=== PATIENT | male | born 1945 | race Caucasian/White ===

== ENCOUNTER 2017-07-19 14:37 | Observation (INO) ==
[2017-07-19] MEDS ORDERED: Aspirin Enteric Coated 81 MG Tablet PO ONE (14:52)
--- NOTE | 2017-07-19 14:55 | Emergency Department Note ---
Disposition Clinical Impression: Chest pain Qualifiers: Chest pain type: unspecified Qualified Code(s): R07.9 - Chest pain, unspecified Disposition: Admitted As Inpatient Condition: Good Time of Disposition: 15:51 General Adult HPI - General Chief complaint: ED Chest Pain Stated complaint: LEAH / CP Time Seen by Provider: 07/19/17 14:41 Source: patient, family Limitations: no limitations Nursing Notes Reviewed: Yes Vital Signs Reviewed: Yes - History of Present Illness HPI Narrative: Patient is a 72-year-old male that presents the emergency department with chest pain and shortness of breath. Said this ongoing for the past 3 days has progressively been getting worse. He describes the pain as a heaviness that radiates into his neck. States that this is similar to previous cardiac events. States that he has also had some nausea and diaphoresis. He states that he has had 3 previous heart procedures including 2 stents in the LAD most recent as 4-5 years ago. Pain Scale: 0 - Related Data Home Medications Medication Instructions Recorded Confirmed Albuterol Sulfate [Proair 2 puff IH Q4H PRN 05/07/15 07/19/17 Respiclick] Aspirin Enteric Coated [Aspirin EC] 81 mg PO QAM 05/07/15 07/19/17 Atorvastatin Calcium [Lipitor] 80 mg PO QPM 05/07/15 07/19/17 Carvedilol 12.5 mg PO BID 05/07/15 07/19/17 Cholecalciferol (Vitamin D3) 1,000 unit PO QAM 05/07/15 07/19/17 [Vitamin D] Clopidogrel [Plavix] 75 mg PO QAM 05/07/15 07/19/17 Furosemide [Lasix] 20 mg PO QPM 05/07/15 07/19/17 Furosemide [Lasix] 40 mg PO QAM 05/07/15 07/19/17 HYDROcodone/Acet 5/325 mg [[place] 1 tab PO Q6H PRN 05/07/15 07/19/17 5-325 mg] Lisinopril [Zestril] 5 mg PO QAM 05/07/15 07/19/17 Nitroglycerin 0.3 mg SL AD PRN 05/07/15 07/19/17 Potassium Chloride [Klor-Con 10 meq PO QPM 05/07/15 07/19/17 Sprinkle] Allergies Allergy/AdvReac Type Severity Reaction Status Date / Time isosorbide [From Imdur] AdvReac Dizziness Verified 05/07/15 09:55 All systems ED: reviewed and negative except as stated. Constitutional: Reports: other (Diaphoresis) Cardiovascular: Reports: chest pain Respiratory: Reports: dyspnea Gastrointestinal: Reports: nausea Past Medical History - Past Medical History Medical history: Reports: aortic aneurysm, COPD, myocardial infarction, other Surgical history: Reports: orthopedic, other (NECK FUSION) Psychiatric history: Reports: no psych history - Social History Smoking Status: Former smoker Smokeless Tobacco Status: No Alcohol use: Reports: none Drug use: Reports: none Physical Exam - General Limitations: no limitations General appearance: alert, in no apparent distress - Head Head exam: atraumatic, normocephalic - Eye Eye exam: Present: normal appearance, EOMI - Neck Neck exam: Present: normal inspection, full ROM, trachea midline - Respiratory Respiratory exam: Present: normal lung sounds bilaterally. Absent: respiratory distress, wheezes - Cardiovascular Cardiovascular exam: Present: regular rate, normal rhythm, normal heart sounds, +S1, +S2 - Abdominal Exam Abdominal exam: Present: soft, Non-Tender, normal bowel sounds - Neurological Exam Neurological exam: Present: alert, oriented X3 - Psychiatric Psychiatric exam: Present: normal affect, normal mood - Skin Skin exam: Present: warm, dry, intact Course Vital Signs Temperature 97.8 F 07/19/17 14:43 Pulse Rate 70 07/19/17 14:43 Respiratory Rate 18 07/19/17 14:43 Blood Pressure 147/104 07/19/17 14:43 O2 Sat by Pulse Oximetry 96 07/19/17 14:43 Temperature 97.9 F 07/19/17 17:07 Pulse Rate 61 07/19/17 17:07 Respiratory Rate 16 07/19/17 17:07 Blood Pressure 115/69 07/19/17 17:07 O2 Sat by Pulse Oximetry 97 07/19/17 17:07 Oxygen Delivery Oxygen Delivery Room Air Medical Decision Making - MDM Narrative Medical decision making narrative: Due to the patient having chest pain and shortness of breath with a previous cardiac history we will obtain a CBC, BMP, BNP, troponin, chest x-ray and EKG. There is concern for possible cardiac related events. The patient's troponin was negative, BNP was negative, chest x-ray showed no acute cardiopulmonary process. The EKG showed no acute changes from previous. There is no STEMI noted on EKG. However due to the patient having previous cardiac history and concern for possible angina-related pain today revealed the patient to be admitted to the hospital for further evaluation and management. The patient took 2 nitroglycerin here in the emergency department and states that this helped relieve his pain. Patient denied taking a third nitroglycerin at this time. Patient was also given 243 mg of aspirin due to the patient ready taking one 81 mg aspirin at home. Patient is also currently on Plavix. Patient will need to be admitted to the hospital for further evaluation and management. I called and spoke the hospital's medical except the patient to their service. The patient will be admitted to the hospital at this time. - Lab Data Lab results reviewed: Yes I reviewed the patient's lab results. Result diagrams: 07/19/17 15:08 07/19/17 15:08 Lab Results 07/19/17 07/19/17 07/19/17 Range/Units 15:08 15:08 15:08 WBC 7.3 (4.3-11.1) K/mcL RBC 4.77 (4.19-5.50) M/mcL Hgb 15.2 (12.9-16.9) g/dL Hct 43.4 (37.5-50.1) % MCV 91.0 (83.0-100.0) fL MCH 31.9 (28.0-33.3) pg MCHC 35.0 (31.6-35.5) g/dL RDW 12.0 (11.5-14.5) % Plt Count 236 (140-400) K/mcL MPV 9.4 (9.4-12.4) fL Immature Gran % 0.3 (0-4) % Seg Neutrophils % 70.7 % Lymphocytes % 14.4 % Monocytes % 12.4 % Eosinophils % 1.5 % Basophils % 0.7 % Neutrophils # 5.2 (1.6-8.9) K/mcL Lymphocytes # 1.1 (0.6-4.6) K/mcL Monocytes # 0.9 (0.0-1.3) K/mcL Eosinophils # 0.1 (0.0-0.6) K/mcL Basophils # 0.1 (0.0-0.2) K/mcL Immature Plt Fraction 3.6 (1.1-6.1) % PT 11.8 (9.4-12.1) Seconds INR 1.1 APTT 33.7 (26.0-36.0) Seconds Sodium (136-145) mEq/L Potassium (3.5-5.1) mEq/L Chloride (98-107) mEq/L Carbon Dioxide (23-29) mEq/L BUN (8-23) mg/dL Creatinine (0.70-1.30) mg/dL Est GFR ( Amer) (> 60) Est GFR (Non-Af Amer) (> 60) BUN/Creatinine Ratio (6-26) Glucose (70-105) mg/dL Calculated Osmolality (280-300) Calcium (8.6-10.3) mg/dL Troponin I (< 0.04) ng/mL B-Natriuretic Peptide 12 (Less than 100) pg/mL 07/19/17 07/19/17 Range/Units 15:08 15:08 WBC (4.3-11.1) K/mcL RBC (4.19-5.50) M/mcL Hgb (12.9-16.9) g/dL Hct (37.5-50.1) % MCV (83.0-100.0) fL MCH (28.0-33.3) pg MCHC (31.6-35.5) g/dL RDW (11.5-14.5) % Plt Count (140-400) K/mcL MPV (9.4-12.4) fL Immature Gran % (0-4) % Seg Neutrophils % % Lymphocytes % % Monocytes % % Eosinophils % % Basophils % % Neutrophils # (1.6-8.9) K/mcL Lymphocytes # (0.6-4.6) K/mcL Monocytes # (0.0-1.3) K/mcL Eosinophils # (0.0-0.6) K/mcL Basophils # (0.0-0.2) K/mcL Immature Plt Fraction (1.1-6.1) % PT (9.4-12.1) Seconds INR APTT (26.0-36.0) Seconds Sodium 131 L (136-145) mEq/L Potassium 3.9 (3.5-5.1) mEq/L Chloride 97 L (98-107) mEq/L Carbon Dioxide 26 (23-29) mEq/L BUN 8 (8-23) mg/dL Creatinine 0.78 (0.70-1.30) mg/dL Est GFR ( Amer) > 60 (> 60) Est GFR (Non-Af Amer) > 60 (> 60) BUN/Creatinine Ratio 10 (6-26) Glucose 111 H (70-105) mg/dL Calculated Osmolality 271 L (280-300) Calcium 9.6 (8.6-10.3) mg/dL Troponin I < 0.03 (< 0.04) ng/mL B-Natriuretic Peptide (Less than 100) pg/mL - Radiology Data Radiology results reviewed: Yes I reviewed the patient's radiology results. Chest X-Ray 07/19/17 14:49 IMPRESSION: No acute cardiopulmonary disease. D/ / 07/19/2017 15:20:48 [facility] Inter[facility] Provider: Yash Ayers MD - EKG Data EKG #1 EKG attestation: Yes I reviewed and interpreted this EKG. EKG results narrative: EKG shows a this rhythm and rate of 68 bpm, MA interval 171, QRS duration of 98 , QTC of 397. No STEMI is noted on EKG. This was compared to previous EKG on 05/07/15 which showed a sinus rhythm at a rate of 74 bpm. There are no acute changes noted between these EKGs. Attestation Statement - Attestation Attestation: I, Nicolás Vera DO, examined this patient [id number] and my medical decision-making was reviewed with Dr. Klever Palm, Resident Physician. I agree with the documented findings, disposition and treatment plan as described except to the extent set forth below. Please see my progress notes for details. 72-year-old male presents emergency room a chest discomfort and pain similar to when he had a myocardial infarction 4 years ago. Patient did not take any medications at home. Patient does have nitroglycerin at his house and does not feel like he wanted to take it prior to coming in. Take a baby aspirin was warranted currently on Plavix. Patient denies any specific exertional component to the symptoms at this time. Initial EKG shows stable morphology comparison EKG from just under a year ago. Patient is provided 2 doses of nitroglycerin glycerin here in the emergency room the symptoms completely resolved. Patient will be monitored here in the in the emergency room his admission processes completely established. Patient does not have any other complaints or issues prior to coming in. His lungs are clear heart is regular his abdomen is soft nontender nondistended no pulsatile lesions or issues. Patient was also extremities. Has good pulses. No other rashes or lesions noted at this time. Patient will require admission for definitive management. Cardiology was not contacted at this time considering his pain ACS evaluation. Patient will most likely need a catheterization during this treatment course considering he has had multiple stenting in the past. Patient is provided with full dose aspirin here in the emergency room. Because of the patient having pain and symptoms for almost 3 days now will not start heparin at this point. Further evaluation recommendations will be completed by the hospitalist as well as the identity access management architect. Disposition of admission at this time. See detailed documentation of the physical exam, medical intervention, medical decision- making and disposition in the resident physician's note. No critical care was applied during this treatment course. 1625 Patient is completely symptom free at this time after 2 nitroglycerin. Patient will be admitted for anginal equivalent and concerning history. EKG and labs are unremarkable. No heparin was started at this time. Hospitalist was contacted for admission process.
[2017-07-19] MEDS: Nitroglycerin 0.4 MG TAB.SUBL SL ONE ×2 (15:01→15:09)
[2017-07-19 15:16] LABS: Basophils # 0.1 K/mcL (0.0-0.2); Basophils % 0.7 %; Eosinophils # 0.1 K/mcL (0.0-0.6); Eosinophils % 1.5 %; Hematocrit 43.4 % (37.5-50.1); Hemoglobin 15.2 g/dL (12.9-16.9); Immature Granulocytes % 0.3 % (0-4); Immature Platelets 3.6 % (1.1-6.1); Lymphocytes # 1.1 K/mcL (0.6-4.6); Lymphocytes % 14.4 %; Mean Corpuscular Hemoglobin 31.9 pg (28.0-33.3); Mean Platelet Volume 9.4 fL (9.4-12.4); Monocytes # 0.9 K/mcL (0.0-1.3); Monocytes % 12.4 %; Neutrophils # 5.2 K/mcL (1.6-8.9); Platelet Count 236 K/mcL (140-400); Red Blood Count 4.77 M/mcL (4.19-5.50); Segmented Neutrophils % 70.7 %
[2017-07-19 15:20] LABS: INR 1.1; Prothrombin Time 11.8 Seconds (9.4-12.1)
[2017-07-19 15:22] LABS: Activated Partial Thrombo Time 33.7 Seconds (26.0-36.0)
[2017-07-19 15:37] LABS: BUN/Creatinine Ratio 10 (6-26); Blood Urea Nitrogen 8 mg/dL (8-23); Calcium 9.6 mg/dL (8.6-10.3); Carbon Dioxide 26 mEq/L (23-29); Chloride 97 mEq/L (98-107); Glucose 111 mg/dL (70-105); Osmolality,Calculated 271 (280-300); Potassium 3.9 mEq/L (3.5-5.1); Sodium 131 mEq/L (136-145); eGFR For African Americans > 60 (> 60); eGFR For Non-African Americans > 60 (> 60)
[2017-07-19] MEDS ORDERED: Naloxone 0.4 MG/ML INJ IVP PRN (16:10)
[2017-07-19] MEDS ORDERED: *HR* HYDROcodone/Acet 5/325 mg TABLET PO PRN (16:25)
[2017-07-19] MEDS ORDERED: Nitroglycerin 0.4 MG TAB.SUBL SL PRN (16:25)
--- NOTE | 2017-07-19 16:32 | Internal Med History&Physical ---
<Tommy Johns - Last Filed: 07/19/17 16:50> Date of Encounter: 07/19/17 Time of Encounter: 16:27 Assessment and Plan (1) Chest pain Current visit: Yes Status: Acute ASSESSMENT: - Midsternal, dull exertional Chest pain with radiation to the neck and between his scapula. He has a h/o CAD and prior LA with 2 stents in the LAD. His last TTE was in 2014. At that time EF was 60%. His last cath was on 08/28/14 which is when he received the stent. There was also an 80% stenosis in the RCA at that time. PLAN: - cardiac enzymes x 2 q 6 hr - EKG - Continue ASA - Continue antiHTN medications - O2 by NC to keep SpO2 greater than 92% PRN - CBC, BMP in AM - Fasting lipids - Resume home medications - Heparin 5000 U SQ BID - 2D Echo - Nuclear stress in the am - Cardiology not consulted. Awaiting results of f/u troponins, TTE, and stress Qualifiers: Chest pain type: unspecified Qualified Code(s): R07.9 - Chest pain, unspecified (2) COPD (chronic obstructive pulmonary disease) Current visit: Yes Status: Acute stable, continue bronchodilators Qualifiers: Emphysema type: unspecified Qualified Code(s): J43.9 - Emphysema, unspecified (3) AAA (abdominal aortic aneurysm) without rupture Current visit: Yes Status: Acute History of AAA without rupture. [facility] 6 months. He reports that his last check the AAA measured 4.8 cm and he is due for a recheck soon. He presents today with chest pain and denies any tearing pain abdominal or pack pain, dizziness, or vomiting. He is hemodynamically stable. (4) CAD (coronary atherosclerotic disease) Current visit: No Status: Chronic Continue ASA, statin, plavix, BB, MEHREEN Qualifiers: Coronary Disease-Associated Artery/Lesion type: [place] artery [place] vs. transplanted heart: [place] heart Associated angina: without angina Qualified Code(s): I25.10 - Atherosclerotic heart disease of [place] coronary artery without angina pectoris (5) DVT prophylaxis Current visit: Yes Status: Acute Heparin 5000 units SC BID Internal Medicine - H&P: HPI Chief complaint: chest pain Admitted From: Home Plans for Post Hospital Care: Home History of present illness: Mr. Velázquez is a 72 year old male with a PMH of COPD, arthritis, AAA (4.8cm, being monitored by [facility]), and a prior LA with 2 stents to the LAD. He presents today with midsternal chest pain described as dull with radiation between his scapula and neck. He reports the chest pain as exertional but it only sometimes improves with rest. He additionally reports shortness of breath , nausea and diaphoresis. He was given 2 SL nitro in the ED and reports that resolution of chest pain. He denies any fevers, chills, N/V/D, abdominal pain, or unilateral extremity swelling or pain. His CXR is negative as is the initial troponin. He is being admitted for observation d/t history and clinical presentation. Past Med Surg Social Fam HX - Past Medical History Medical history: aortic aneurysm, COPD, myocardial infarction, other Psychiatric history: no psych history - Past Surgical History Surgical History: orthopedic, other (NECK FUSION) - Social History Smoking Status: Former smoker Smokeless Tobacco Status: No Alcohol use: none Drug use: none - Family History Mother Hx Family Cardiac Disorders: No Hx Family Respiratory Disorders: Yes Hx Family Cancer: No Hx Family GI Disorders: Yes Hx Family Endocrine Disorder: No Hx Family Neuromuscular Disorders: No Father Living Status: Hx Family Cardiac Disorders: Yes (CAD) Hx Family Respiratory Disorders: Yes Hx Family GI Disorders: Yes Brother Hx Family Cardiac Disorders: Yes (2 Brothers has LA at young age 40,50. one of massive LA at 56) Hx Family GI Disorders: Yes (Liver Cirrhosis) Internal Medicine - H&P: Meds Albuterol Sulfate [Proair Respiclick] 2 puff IH Q4H PRN 05/07/15 [History] Aspirin Enteric Coated [Aspirin EC] 81 mg PO QAM 05/07/15 [History] Atorvastatin Calcium [Lipitor] 80 mg PO QPM 05/07/15 [History] Carvedilol 12.5 mg PO BID 05/07/15 [History] Cholecalciferol (Vitamin D3) [Vitamin D] 1,000 unit PO QAM 05/07/15 [History] Clopidogrel [Plavix] 75 mg PO QAM 05/07/15 [History] Furosemide [Lasix] 20 mg PO QPM 05/07/15 [History] Furosemide [Lasix] 40 mg PO QAM 05/07/15 [History] HYDROcodone/Acet 5/325 mg [[place] 5-325 mg] 1 tab PO Q6H PRN 05/07/15 [History] Lisinopril [Zestril] 5 mg PO QAM 05/07/15 [History] Nitroglycerin 0.3 mg SL AD PRN 05/07/15 [History] Potassium Chloride [Klor-Con Sprinkle] 10 meq PO QPM 05/07/15 [History] 3 Allergy/AdvReac Type Severity Reaction Status Date / Time isosorbide [From Imdur] AdvReac Dizziness Verified 05/07/15 09:55 All Systems PM: A 10-system review of systems was performed and is negative for pertinent findings except as documented above in the HPI. - Constitutional Constitutional: no chills, no fever(s), no night sweats - EENT Eyes: no change in vision, no discharge, no pain, no photophobia Ears: no ear discharge, no ear pain, no tinnitus Nose, mouth and throat: no dysphagia, no nasal discharge, no neck pain, no sore throat - Cardiovascular Cardiovascular ROS IM: as per HPI - Respiratory Respiratory: as per HPI - Gastrointestinal Gastrointestinal: no abdominal pain, no diarrhea, no hematemesis, no hematochezia, no melena, no nausea, no vomiting - Musculoskeletal Musculoskeletal ROS IM: no numbness, no tingling - Integumentary Integumentary IM: no rash, no unusual bruising - Neurological Neurological ROS: no confusion, no convulsions, no focal weakness, no numbness, no tingling, no tremor(s) - Hematologic/Lymphatic Hematologic/Lymphatic: no easy bruising - Constitutional Vitals: Temp Pulse Resp BP Pulse Ox 97.8 F 68 18 121/66 96 07/19/17 14:43 07/19/17 15:13 07/19/17 15:13 07/19/17 15:13 07/19/17 15:13 General appearance: Present: cooperative, A&O X 3, no acute distress, answers questions appropriately - Head Head exam: Present: atraumatic, normocephalic - Eye Eye exam: Present: PERRL, conjuntiva pink, sclera anicteric Pupils: Present: PERRL - Neck Neck exam general surgery: Present: supple, trachea midline. Absent: lymphadenopathy - Respiratory Respiratory exam: Present: CTAB. Absent: accessory muscle use, rales, rhonchi, wheezes - Cardiovascular Cardiovascular exam: Present: RRR, +S1, +S2. Absent: diastolic murmur, gallop, rubs, systolic murmur - GI/Abdominal GI/Abdominal exam: Present: normal bowel sounds, soft, no peritoneal signs. Absent: distended, tenderness - Extremities Exam Extremities exam: Present: warm, radial pulses palpable and symmetrical. Absent : calf tenderness, cyanotic, pedal edema - Neurological Exam Neurological exam: Present: CN II-XII intact, oriented X3, no focal deficits. Absent: pronater drift, facial droop, speech deficit - Skin Skin exam: Present: dry, intact Internal Med - H&P Results - Labs CBC & Chem 7: 07/19/17 15:08 07/19/17 15:08 - EKG Data -: EKG Interpreted by Myself EKG shows normal: sinus rhythm - EKG Data Prior EKG available for review: yes When compared to previous EKG: there is no significant change - Impressions Impressions Chest X-Ray 07/19/17 14:49 IMPRESSION: No acute cardiopulmonary disease. D/ / 07/19/2017 15:20:48 [facility] Interpreting Provider: Yash Ayers MD <Vinicius Irene T - Last Filed: 07/20/17 08:06> Date of Encounter: 07/20/17 Internal Medicine - H&P: HPI History of present illness: Mr. Velázquez is a 72 year old male All Systems PM: A 10-system review of systems was performed and is negative for pertinent findings except as documented above in the HPI. - Constitutional Vitals: Temp Pulse Resp BP Pulse Ox 97.8 F 66 20 131/76 95 07/20/17 03:49 07/20/17 03:49 07/20/17 03:49 07/20/17 03:49 07/20/17 05:27 Internal Med - H&P Results - Labs CBC & Chem 7: 07/20/17 01:54 07/20/17 01:54 Labs: Short CBC 07/20/17 Range/Units 01:54 WBC 6.3 (4.3-11.1) K/mcL Hgb 14.3 (12.9-16.9) g/dL Hct 41.3 (37.5-50.1) % Plt Count 210 (140-400) K/mcL BMP 07/20/17 01:54 Sodium 133 L Potassium 3.6 Chloride 97 L Carbon Dioxide 29 BUN 10 Creatinine 0.92 Glucose 97 Calcium 9.1 Cardiac Enzymes 07/19/17 07/20/17 Range/Units 21:17 01:54 Troponin I < 0.03 < 0.03 (< 0.04) ng/mL - Attending Attestation The patient was independently examined and his available records were reviewed. Agree with BLEACH PACKER's A&P. Nuclear perfusion stress test in am. Continue trending Gina. Ech pending.
[2017-07-19] MEDS: *HR* Heparin 5,000 UNIT/ML VIAL SQ SCH (17:50)
[2017-07-19] MEDS ORDERED: Furosemide 20 MG TABLET PO SCH (18:00)
[2017-07-20 02:09] LABS: Hematocrit 41.3 % (37.5-50.1); Hemoglobin 14.3 g/dL (12.9-16.9); Mean Corpuscular HGB Conc 34.6 g/dL (31.6-35.5); Mean Corpuscular Hemoglobin 31.8 pg (28.0-33.3); Mean Corpuscular Volume 91.8 fL (83.0-100.0); Mean Platelet Volume 9.3 fL (9.4-12.4); Platelet Count 210 K/mcL (140-400); Red Cell Distribution Width 12.3 % (11.5-14.5)
[2017-07-20 02:25] LABS: BUN/Creatinine Ratio 11 (6-26); Blood Urea Nitrogen 10 mg/dL (8-23); Calcium 9.1 mg/dL (8.6-10.3); Carbon Dioxide 29 mEq/L (23-29); Chloride 97 mEq/L (98-107); Glucose 97 mg/dL (70-105); Osmolality,Calculated 275 (280-300); Potassium 3.6 mEq/L (3.5-5.1); Sodium 133 mEq/L (136-145); eGFR For African Americans > 60 (> 60); eGFR For Non-African Americans > 60 (> 60)
[2017-07-20] MEDS: *HR* Heparin 5,000 UNIT/ML VIAL SQ SCH (05:24)
[2017-07-20] MEDS ORDERED: Regadenoson 0.4 MG/5 ML SYRINGE IVP ONE (07:11)
[2017-07-20] MEDS ORDERED: Aspirin Enteric Coated 81 MG Tablet PO SCH (09:00)
[2017-07-20] MEDS ORDERED: Furosemide 40 MG TABLET PO SCH (09:00)
[2017-07-20] MEDS ORDERED: Cholecalciferol (D-3) 1,000 UNIT TABLET PO SCH (09:00)
[2017-07-20 11:47] VITALS: BP 131/81
--- NOTE | 2017-07-20 14:55 | Discharge Summary ---
Date of Encounter: 07/20/17 Time of Encounter: 14:50 - Discharge Diagnosis (1) Chest pain Priority: Primary Status: Acute Qualifiers: Chest pain type: unspecified Qualified Code(s): R07.9 - Chest pain, unspecified (2) CAD (coronary atherosclerotic disease) Priority: Primary Status: Chronic Qualifiers: Coronary Disease-Associated Artery/Lesion type: z[place] artery [place] vs. transplanted heart: zuni heart Associated angina: without angina Qualified Code(s): I25.10 - Atherosclerotic heart disease of zuni coronary artery without angina pectoris (3) COPD (chronic obstructive pulmonary disease) Priority: Secondary Status: Chronic Qualifiers: Emphysema type: unspecified Qualified Code(s): J43.9 - Emphysema, unspecified (4) Hypertension Priority: Secondary Status: Chronic Qualifiers: Hypertension type: essential hypertension Qualified Code(s): I10 - Essential (primary) hypertension - Discharge Medications Home Medications: Albuterol Sulfate [Proair Respiclick] 2 puff IH Q4H PRN 05/07/15 [History] Aspirin Enteric Coated [Aspirin EC] 81 mg PO QAM 05/07/15 [History] Atorvastatin Calcium [Lipitor] 80 mg PO QPM 05/07/15 [History] Carvedilol 12.5 mg PO BID 05/07/15 [History] Cholecalciferol (Vitamin D3) [Vitamin D] 1,000 unit PO QAM 05/07/15 [History] Clopidogrel [Plavix] 75 mg PO QAM 05/07/15 [History] Furosemide [Lasix] 20 mg PO QPM 05/07/15 [History] Furosemide [Lasix] 40 mg PO QAM 05/07/15 [History] HYDROcodone/Acet 5/325 mg [[place] 5-325 mg] 1 tab PO Q6H PRN 05/07/15 [History] Lisinopril [Zestril] 5 mg PO QAM 05/07/15 [History] Nitroglycerin 0.3 mg SL AD PRN 05/07/15 [History] Potassium Chloride [Klor-Con Sprinkle] 10 meq PO QPM 05/07/15 [History] Allergies/Adverse Reactions: 3 Allergy/AdvReac Type Severity Reaction Status Date / Time isosorbide [From Imdur] AdvReac Dizziness Verified 05/07/15 09:55 Procedures/tests Complete & Pending: Procedures Performed prior 72 hours Category Date Time Status NM cynthia perf SPECT multi [NM] Routine Exams 07/19/17 16:25 Taken EV echocardiogram Routine Y 07/20/17 16:09 Completed SP pharm nuclear stress Routine Y 07/20/17 08:00 Completed Date of admission: 07/19/17 15:59 [facility] care physician: [facility] Consults: none Discharging clinician: Vinicius Irene - Patient Status Disposition: Home, Self-Care Condition: Good - Discharge Instructions Instructions: Chest Pain (DC), Peripheral Vascular Disorders (DC), Chronic Obstructive Pulmonary Disease (DC) Follow Up With: [facility],PCP [Primary Care Provider] - 07/23/17 10:45 am Hospital course: A&P: Chest pain Current visit: Yes Status: Acute ASSESSMENT: - Midsternal, dull exertional Chest pain with radiation to the neck and between his scapula. He has a h/o CAD and prior NE with 2 stents in the LAD. His last TTE was in 2014. At that time EF was 60%. His last cath was on 08/28/14 which is when he received the stent. There was also an 80% stenosis in the RCA at that time. PLAN: - cardiac enzymes x 3 sets normal - EKG- no ischemic changes - Continue ASA - Continue antiHTN medications - O2 by NC to keep SpO2 greater than 92% PRN - CBC, BMP in AM - Fasting lipids - Resume home medications - Heparin 5000 U SQ BID - 2D Echo read as essentially normal - Nuclear stress- neg for ischemic changes (2) COPD (chronic obstructive pulmonary disease) Stable without exacerbationcontinue bronchodilators (3) AAA (abdominal aortic aneurysm) without rupture History of AAA without rupture. He is being monitored by his [place] medical team every 6 months. He reports that his last check the AAA measured 4.8 cm and he is due for a recheck soon. He presents today with chest pain and denies any tearing pain abdominal or pack pain, dizziness, or vomiting. He is hemodynamically stable. Hospital course: He was admitted for overnight observation . He had resolution of his chest pain and his w/u was completely negative including 3 sets of nl troponins, no ischemic changes on ECG, An essentially normal Echo and nuclear perfusion study. Continue Aspirin, plavix and coreg as well as statin. F/u with PCP and cardiology. - Time Spent with Patient Total time spent providing and/or coordinating discharge services: Greater than 30 minutes - Constitutional Vitals: Temp Pulse Resp BP Pulse Ox 97.8 F 69 18 131/81 94 07/20/17 11:46 07/20/17 11:46 07/20/17 11:46 07/20/17 11:46 07/20/17 11:46 General appearance: Present: cooperative, A&O X 3, no acute distress, answers questions appropriately - Head Head exam: Present: atraumatic, normocephalic - Eye Eye exam: Present: EOMI, PERRL, conjuntiva pink, sclera anicteric Pupils: Present: PERRL - Neck Neck exam general surgery: Present: supple, trachea midline. Absent: lymphadenopathy - Respiratory Respiratory exam: Present: CTAB. Absent: accessory muscle use, rales, rhonchi, stridor, wheezes - Cardiovascular Cardiovascular exam: Present: RRR, +S1, +S2. Absent: diastolic murmur, gallop, rubs, systolic murmur - GI/Abdominal GI/Abdominal exam: Present: normal bowel sounds, soft, no peritoneal signs. Absent: distended, tenderness - Extremities Exam Extremities exam: Present: warm, radial pulses palpable and symmetrical. Absent : calf tenderness, cyanotic, pedal edema - Neurological Exam Neurological exam: Present: CN II-XII intact, oriented X3, no focal deficits. Absent: alert, altered, pronater drift, facial droop, speech deficit - Psychiatric Psychiatric exam: Absent: homicidal ideation, suicidal ideation - Skin Skin exam: Present: dry, intact
--- NOTE | 2017-07-20 17:39 | Electrocardiograph Report ---
[address] [place] [address] Test Date: 2017-07-19 Pat Name: Jericho Velázquez Department: 102 Room: 3B23 Gender: M Configuration Management Advisor: : [id number] Requested By: Klever Palm Order Number: [id number] Reading MD: Judson Smith DO Measurements Intervals [place] Rate: 68 P: 89 GA: 171 QRS: -2 QRSD: 98 T: 45 QT: 380 QTc: 397 Interpretive Statements SINUS RHYTHM SEPTAL MYOCARDIAL INFARCTION , PROBABLY OLD Electronically Signed On 07-20-2017 17:37:53 EST by Judson Smith DO
== END 2017-07-20 15:20 | disposition home or self-care (01) ==
LOC: EMEROO 14:37 → 3BNU 14:37
PROVIDERS: ADMIT Internal Medicine; ATTEND Registered Nurse

== ENCOUNTER 2017-10-08 05:52 | Inpatient (IN) ==
[2017-10-08] MEDS ORDERED: Vancomycin 1,000 MG, Sodium Chloride IRRigation 1,000 ML IR ONE (06:00)
[2017-10-08] MEDS ORDERED: Lidocaine -MPF 1% 2 ML VIAL ID ONE (06:13)
[2017-10-08] MEDS ORDERED: CeFAZolin Syr 2,000MG/20 ML 2,000 MG/20 ML SYRINGE IVPB ONE (06:13)
[2017-10-08] MEDS ORDERED: Ringers Solution, Lactated 1,000 ML IVC SCH (06:15)
[2017-10-08] MEDS ORDERED: Albuterol 2.5 MG/3 ML NEBULIZER IH ONE (06:23)
--- NOTE | 2017-10-08 07:00 | Anesthesia Evaluation PreOp ---
Date of Encounter: 10/08/17 Time of Encounter: 06:58 - Past History Planned Operation: Endo-AAA Repair Cardiac History: MS, HTN, Hyperlipidemia, Cardiac Stent (stent x 2 in 2005), Other (AAA 5cm) Pulmonary History: Former smoker (quit 6 years ago, smoked for 46 years), COPD, ASHLEY Dx (unable to tolerate CPAP) PRODUCT APPLICATIONS ENGINEER History: Other (chronic back pain) Other Medical History: Denies Any Significant HX Anesthesia History: No Prior Anesthetic Complications, Past Anesthesia (neck fusion) Alcohol Use: none Drug use: none Medications and Allergies Albuterol Sulfate [Proair Respiclick] 2 puff IH Q4H PRN 05/07/15 [History] Aspirin Enteric Coated [Aspirin EC] 81 mg PO QAM 05/07/15 [History] Atorvastatin Calcium [Lipitor] 80 mg PO QPM 05/07/15 [History] Carvedilol 12.5 mg PO BID 05/07/15 [History] Cholecalciferol (Vitamin D3) [Vitamin D] 1,000 unit PO QAM 05/07/15 [History] Clopidogrel [Plavix] 75 mg PO QAM 05/07/15 [History] Furosemide [Lasix] 40 mg PO QAM 05/07/15 [History] HYDROcodone/Acet 5/325 mg [[place] 5-325 mg] 1 tab PO Q6H PRN 05/07/15 [History] Lisinopril [Zestril] 5 mg PO QAM 05/07/15 [History] Nitroglycerin 0.3 mg SL AD PRN 05/07/15 [History] Potassium Chloride [Klor-Con Sprinkle] 10 meq PO QPM 05/07/15 [History] 3 Allergy/AdvReac Type Severity Reaction Status Date / Time No Known Allergies Allergy Verified 10/08/17 06:18 - Meds/Allergy Pre-op Review Medications Reviewed: Yes Allergies Reviewed: Yes Beta Blockers on Current Med List: Yes If Beta Blockers taken, Date/Time (Last Dose taken): 10/08/2017 at 0330 Anesthesia Results - Labs Laboratory Tests 10/01/17 10/01/17 10/01/17 11:18 11:18 11:18 WBC 5.7 Hgb 14.9 Hct 42.9 Plt Count 211 PT 11.1 INR 1.0 APTT 33.2 Sodium 133 L Potassium 3.8 BUN 9 Creatinine 0.85 - Imaging EKG: report reviewed (07/19/2017 SINUS RHYTHM SEPTAL MYOCARDIAL INFARCTION , PROBABLY OLD) Additional studies: 07/20/2017 Echo Impressions: LVEF 60%. Normal LV chamber size, wall thickness and function. Mild left ventricular diastolic dysfunction. Normal right ventricular structure and function. Unable to estimate RVSP due to lack of TR jet. No significant valvular dysfunction. 07/20/2017 Stress Impression: Pharmacologic stress ECG is negative for ischemia at level of heart rate achieved. Chest discomfort reported during Lexiscan infusion. Gated EF > 70%. Small sized, mild intensity, fixed inferior perfusion defect. Wall motion appears normal. Findings are consistent with artifact. Perfusion imaging was negative for ischemia or infarct. 05/07/2015 Limited Echo Findings: Study Quality * Technically adequate exam. ECG Findings * Normal sinus rhythm. Left Ventricle * Normal LV systolic function, LVEF 60%. * Normal left ventricular size and wall thickness. Right Ventricle * Normal right ventricular structure and function. Aorta * Normally sized aortic root. Pericardium * There is no pericardial effusion present. Anesthesia Exam O2 Sat Height 1.83 m Height 1.83 m Height 1.83 m Weight 99.337 kg Weight 99.337 kg Weight 99.337 kg O2 Sat by Pulse Oximetry 96 O2 Sat by Pulse Oximetry 96 O2 Sat by Pulse Oximetry 96 Vital Signs Temp Pulse Resp BP Pulse Ox 98.0 F 69 18 141/87 96 10/08/17 06:14 10/08/17 06:14 10/08/17 06:14 10/08/17 06:14 10/08/17 06:14 Height: 6' Weight: 219 lbs NPO (# of Hours): 8 Pain Scale: 7 (low back) Pain Scale Used: Numeric (1 - 10) - HEENT Pupil (Motor): EOMI Mallampati: III Teeth: Edentulous Denture Type: Upper: Complete, Lower: Complete Oral Opening: Greater than 3 - PRODUCT APPLICATIONS ENGINEER LOC: Oriented PRODUCT APPLICATIONS ENGINEER Motor: Normal RUE, Normal RLE, Normal LLE, Normal Face, Deficit LUE PRODUCT APPLICATIONS ENGINEER Sensory: Normal: RUE, RLE, LLE, Face, Deficit: LUE - Cardiac Rhythm: Regular Murmur: None - Pulmonary Breath Sounds: bilateral Clear Respiratory Effort: Symmetrical Anesthesia Assess/Plan ASA Score: 3 Modified [place] Scale for Level of Consciousness: Cooperative, oriented, and tranquil Anesthetic Plan: General Monitoring Plan: Standard Monitors, A-Line Recovery Plan: PACU
[2017-10-08] MEDS ORDERED: Lidocaine -MPF 2% 2 ML VIAL ONE (07:16)
[2017-10-08] MEDS ORDERED: Dexamethasone 4 MG/ML VIAL ONE (07:16)
[2017-10-08] MEDS ORDERED: *HR* FentaNYL (PF) 100 MCG/2 ML VIAL ONE (07:16)
[2017-10-08] MEDS ORDERED: *HR* Propofol 200 MG/20 ML VIAL IVP ONE (07:16)
[2017-10-08] MEDS ORDERED: *HR* Rocuronium Bromide 50 MG/5 ML VIAL ONE ×2 (07:16→09:10)
[2017-10-08] MEDS ORDERED: *HR* Midazolam HCl 2 MG/2 ML VIAL ONE (07:16)
[2017-10-08] MEDS ORDERED: Lidocaine -MPF 4% 5 ML AMPUL ONE (07:16)
[2017-10-08] MEDS ORDERED: Ondansetron 4 MG/2 ML VIAL ONE (07:16)
[2017-10-08] MEDS ORDERED: Heparin 1,000 UNITS/500 mL 1,500 ML ONE ×2 (07:19→08:43)
--- NOTE | 2017-10-08 07:32 | History & Physical Report ---
Date of Encounter: 10/08/17 Time of Encounter: 07:28 24 Hour HP Update - Instructions Instructions: If the History and Physical is less than 30 days old and was completed prior to A.M. admission and or procedure and has NOT been updated on calendar day of procedure please complete this update prior to performing procedure. - Update Patient reports changes in Medical Condition: No Changes in examination, assessment, or condition: No Changes in Medication: No Preop tests/diagnostics Reviewed: Yes Surgery Remains Indicated: Yes Consent for Planned Operative Procedure(s) Verified: Yes - Pre-Operative Checklist Preoperative Checklist Indicated: Yes Prophylactic Antibiotic Ordered: Yes (Vancomycin due to MRSA risk) Home Medications Include Beta Eddie: No Beta Eddie Taken Today (Day of Surgery): No Beta Eddie Taken Yesterday (Day Prior to Surgery): No Is VTE Prophylaxis Indicated?: Yes
[2017-10-08] MEDS ORDERED: Heparin 1,000 UNITS/500 mL 500 ML ONE (07:48)
[2017-10-08] MEDS ORDERED: Isovue-300 150 ML INFUS..BTL IV ONE (08:02)
[2017-10-08] MEDS ORDERED: EPHEDrine 50 MG/ML VIAL ONE ×2 (08:15→09:22)
[2017-10-08] MEDS ORDERED: Albumin Human 5% 25.0 GM/500 ML VIAL ONE (08:30)
[2017-10-08] MEDS ORDERED: *HR* PHENYLEPHRINE 1,000 MCG/10 ML SYRINGE IVP ONE (08:54)
[2017-10-08] MEDS ORDERED: *HR* Phenylephrine 10 MG/ML VIAL ONE (09:46)
[2017-10-08] MEDS ORDERED: Neostigmine Methylsulfate 3 MG/3 ML SYRINGE ONE (10:03)
[2017-10-08] MEDS ORDERED: *HR* Promethazine 25 MG/ML VIAL IVP PRN (10:19)
[2017-10-08] MEDS ORDERED: Albuterol 2.5 MG/3 ML NEBULIZER IH PRN (10:19)
[2017-10-08] MEDS ORDERED: *HR* OxyCODONE Immed Rel 5 MG TABLET PO PRN (10:19)
--- NOTE | 2017-10-08 10:55 | Operative Note ---
Date of procedure: 10/08/17 Pre-op diagnosis: 5cm infrarenal abdominal aortic aneurysm Post-op diagnosis: same Procedure: 1. Introduction of catheter into the aorta via right common femoral artery. 2. Introduction of catheter into the aorta via left common femoral artery. 3. Right femoral vessel exposure for endograft placement. 4. Left femoral vessel exposure for endograft placement. 5. Endograft repair of abdominal aortic aneurysm with Cook Zenith graft and two docking limbs including radiologic supervision and interpretation. Complications: None Anesthesia: GETA Surgeon: Chance Lowery Was there an salon assistant present: Yes Pipe Organ Builder: Jae Nicholson Estimated blood loss (cc): 100 Specimen: None Condition: stable Disposition: PACU Procedure in Detail: Indications: The patient is a 72 year old male with a history of hypertension and hyperlipidemia. He was found to have a 5.0cm infrarenal abdominal aortic aneurysm. His anatomy is appropriate for endograft placement. Endovascular repair has been recommended to reduce his risk of rupture. Procedure: The patient was identified, brought to the operating room and placed in the supine position on the operating room table. After induction of general endotracheal anesthesia, the patient was cleaned and draped in normal sterile fashion. Oblique incisions were made over both groins sharply. Hemostasis was obtained with electrocautery. Using blunt and sharp and electrocautery dissection, the right and left common, deep and superficial femoral arteries were dissected circumferentially and surrounded with Vesseloops. The patient received 5000 units of heparin intravenously and then bilateral femoral punctures with large-bore needles were performed. Bentson wires were advanced into the aorta under fluoroscopic view. Given the anatomy, the main body was selected to be the right side of the patient. The needles were exchanged for bilateral #8-Icelandic sheaths and a long Pigtail catheter was advanced over the right wire into the aortic arch. The wire was replaced with a Lunderquist wire. The catheter was removed and repositioned in the suprarenal aorta via the left femoral artery. The main body was inserted over the Lunderquist wire with the contralateral limb being in the anterolateral position. An aortogram was then performed at the level of the renal artery. The graft was positioned just below the renal arteries and the first 2 segments were deployed. A repeat aortogram revealed adequate infrarenal placement. The graft was then deployed until the contralateral limb exposed. After confirming adequate infrarenal placement, the suprarenal stent was deployed in the usual fashion. The contralateral limb was then selected with a Bentson wire using a guiding catheter. Intragraft placement of the wire was confirmed by placing the pigtail and spinning it freely as well as injecting a small amount of contrast. An oblique view of the pelvis was performed with contrast to size the left extension limb. The #8-Icelandic sheath was removed and exchanged for the appropriate limb, which was advanced under fluoroscopic view and positioned. It was then expanded and the introducer was removed. The remaining portion of the main body was deployed, the top cap was retrieved and the introducer was removed. An oblique view of the right pelvis was performed in a similar fashion to determine the length of the graft on the right. The graft extension was then advanced on the right and positioned in the usual fashion. Upon completion of the graft docking limb extension, a Coda balloon was then advanced into the graft proximal and distal endpoints as well as overlap were expanded with gentle pressure. The balloon was left in the suprarenal position and a Flush catheter was placed in the suprarenal aorta. A Flush completion angiogram revealed no evidence of an endoleak. Tension was applied to the Vesseloops in the groin. The bilateral sheaths were then removed. After confirming hemodynamic stability, the wires were then removed. The bilateral arteriotomies were repaired with a running 6-0 Prolene. Antibiotic irrigation was infused into the groin. Platelet rich and platelet poor plasma were infused into the incisions. The bilateral groins were closed with a single layer of 2-0 Vicryl followed by two layers of 3-0 Vicryl followed by a layer of 3-0 monocryl in the subcuticular region. Sterile dressings were applied. The patient was then extubated and taken to the recovery room in stable condition.
--- NOTE | 2017-10-08 11:19 | Anesthesia Evaluation Post Op ---
Date of Encounter: 10/08/17 Time of Encounter: 11:18 - Vital Signs Vital Signs: Vital Signs/O2 Sat, Most Current Temp Pulse Resp BP Pulse Ox 97.7 F 76 16 120/81 96 10/08/17 11:11 10/08/17 11:11 10/08/17 11:11 10/08/17 11:11 10/08/17 11:11 - Lungs Lungs: Clear Ascult./Percussion - Airway Airway: Non-obstructed - Cardiovascular Regular Rate - Mental Status Mental Status: Alert & Oriented, Answers Appropriately - Pain Pain Scale: 2 Pain Scale used: Numeric (1 - 10) - Nausea Vomiting Nausea Vomiting: Not Present - Hydration Hydration: NPO, Henry catheter - Discharge PostOp Status: Transfer Patient to floor
--- NOTE | 2017-10-08 11:33 | Operative Note ---
Date of procedure: 10/08/17 Pre-op diagnosis: Abdominal aortic aneurysm Post-op diagnosis: same Procedure: Repair of abdominal aortic aneurysm using endovascular technique with modular bifurcated Cook Zenith system with 2 docking limbs Bilateral open femoral exposure Bilateral nonselective aortic catheterizations Complications: None Anesthesia: GETA Surgeon: Chance Lowery Co-Surgeon: Jae Nicholson Was there an preschool assistant teacher present: No Estimated blood loss (cc): 100 Specimen: None Condition: stable Disposition: PACU Procedure in Detail: History Jericho Velázquez is a 72-year-old white male who was identified as having a 5 cm abdominal aortic aneurysm. He is recommended to undergo surgical repair electively. CT imaging demonstrated appropriate anatomy for endovascular repair. The patient has a history of hypertension and coronary artery disease as well as COPD. Procedure After informed consent was obtained the patient was taken to the operating room. General endotracheal anesthesia was established under arterial line pressure monitoring. A 2 surgeon approach was utilized for this procedure due to the patient's comorbid conditions that include hypertension and coronary disease and is status post previous coronary interventions as well as COPD. The abdomen groin and upper thighs were sterilely prepped and draped. A timeout protocol was observed. An oblique incision was made in each groin. Dissection was carried down to reveal the common femoral artery bilaterally and control was obtained. An 18-gauge needle was then used to puncture the common femoral artery in a retrograde manner bilaterally. This was followed by a sheath and dilator. The dilator was removed and the sheath was aspirated and flushed. A guidewire was inserted into the proximal descending thoracic aorta. The marker pigtail catheter was then placed from the right side to the left. An abdominal aortogram was then performed via the left side. The renal artery locations were then marked. The main body was then placed via the right side. A Cook Zenith endovascular stent graft system was used with 2 docking limbs. The main body was a 30 x 82 mm prosthesis. After this was deployed and the docking limb exposed on the left side attention was directed to cannulating the docking limb. Using a Bentson wire and a burn catheter the wire was placed into the main body. Correct positioning was confirmed by use of a marker pigtail catheter and injecting contrast in the lumen of the graft. After this was done the left iliac bifurcation was identified. Then the left-sided component was selected and this was a 16 x 90 mm stent graft. This was then deployed without incident with preservation of the left iliac bifurcation. Attention was then directed back to the right side. The top cap was recaptured after complete deployment of the right-sided system and then removed. The pigtail catheter was inserted on the right side and then an angiogram obtained of the iliac system. The iliac bifurcation was identified and marked. A 13 x 90 mm stent graft system was selected for this third and final component for the endovascular stent graft repair. This was then deployed on the right side. After this was accomplished a Coda balloon was inserted from both the right and then from the left side. The stent graft was then gently molded and expanded with the Coda balloon. With this accomplished the marker pigtail catheter was then reinserted a final time. It was placed in the suprarenal location. A completion aortogram was performed which demonstrated preservation of the renal arteries bilaterally as well as the iliac bifurcation. With this done all the delivery devices were removed. The femoral puncture sites were then closed using 6-0 Prolene suture. The wound was then irrigated. Excellent pulsations through the artery were identified by palpation and by Doppler evaluation. The wounds were then closed in layers using absorbable suture. Dry sterile dressings were applied. The patient was extubated in the operating room and taken to the recovery room in stable condition. There were no intraoperative complications.
[2017-10-08] MEDS ORDERED: Acetaminophen 325 MG TABLET PO PRN (12:27)
[2017-10-08] MEDS ORDERED: OXYCODONE Oral CONC 10 MG/0.5 ML ORAL.SYG SL PRN (12:27)
[2017-10-08] MEDS ORDERED: *HR* Labetalol 20 MG/4 ML SYRINGE IVP PRN (12:27)
[2017-10-08] MEDS ORDERED: NITROGLYCERIN 0.3 MG SL PRN (12:27)
[2017-10-08] MEDS ORDERED: Ondansetron 4 MG/2 ML VIAL IVP PRN (12:27)
[2017-10-08] MEDS ORDERED: Naloxone 0.4 MG/ML INJ IVP PRN (12:27)
[2017-10-08] MEDS ORDERED: Nitroglycerin 0.4 MG TAB.SUBL SL PRN (12:48)
[2017-10-08] MEDS: OXYCODONE Oral CONC 10 MG/0.5 ML ORAL.SYG SL PRN ×2 (13:42→23:58)
[2017-10-08] MEDS: *HR* Metoprolol 5 MG/5 ML VIAL IVP SCH ×2 (13:43→16:40)
[2017-10-08] MEDS: CeFAZolin Pre 2,000 MG/100 ML 2,000 MG/100 ML BAG IVPB SCH (16:40)
[2017-10-08] MEDS: *HR* HYDROcodone/Acet 5/325 mg TABLET PO PRN (16:46)
[2017-10-08] MEDS: *HR* OxyCODONE Immed Rel 5 MG TABLET PO PRN (19:53)
[2017-10-09] MEDS: CeFAZolin Pre 2,000 MG/100 ML 2,000 MG/100 ML BAG IVPB SCH
[2017-10-09] MEDS: *HR* OxyCODONE Immed Rel 5 MG TABLET PO PRN (03:40)
[2017-10-09 04:40] LABS: Basophils # 0.1 K/mcL (0.0-0.2); Basophils % 0.5 %; Eosinophils # 0.1 K/mcL (0.0-0.6); Eosinophils % 0.7 %; Hematocrit 37.6 % (37.5-50.1); Immature Granulocytes % 0.4 % (0-4); Lymphocytes # 0.9 K/mcL (0.6-4.6); Lymphocytes % 8.2 %; Mean Corpuscular HGB Conc 34.6 g/dL (31.6-35.5); Mean Corpuscular Hemoglobin 31.8 pg (28.0-33.3); Mean Corpuscular Volume 91.9 fL (83.0-100.0); Mean Platelet Volume 9.7 fL (9.4-12.4); Monocytes # 1.6 K/mcL (0.0-1.3); Monocytes % 14.3 %; Neutrophils # 8.3 K/mcL (1.6-8.9); Platelet Count 167 K/mcL (140-400); Red Blood Count 4.09 M/mcL (4.19-5.50); Red Cell Distribution Width 12.4 % (11.5-14.5); Segmented Neutrophils % 75.9 %
[2017-10-09 04:52] LABS: BUN/Creatinine Ratio 14 (6-26); Blood Urea Nitrogen 11 mg/dL (8-23); Calcium 8.8 mg/dL (8.6-10.3); Carbon Dioxide 24 mEq/L (23-29); Chloride 100 mEq/L (98-107); Glucose 104 mg/dL (70-105); Osmolality,Calculated 276 (280-300); Potassium 3.8 mEq/L (3.5-5.1); Sodium 133 mEq/L (136-145); eGFR For African Americans > 60 (> 60); eGFR For Non-African Americans > 60 (> 60)
[2017-10-09] MEDS: *HR* Metoprolol 5 MG/5 ML VIAL IVP SCH ×2 (05:55)
[2017-10-09] MEDS ORDERED: *HR* Heparin 5,000 UNIT/ML VIAL SQ SCH ×2 (06:00)
[2017-10-09 07:37] VITALS: BP 129/84
--- NOTE | 2017-10-09 08:07 | Discharge Summary ---
Date of Encounter: 10/09/17 Time of Encounter: 08:05 - Discharge Diagnosis (1) AAA (abdominal aortic aneurysm) without rupture Priority: Primary Status: Chronic Comments: The patient is postoperative day #1 after endograft repair 5 cm abdominal aortic aneurysm. His abdomen is soft. He is alert and comfortable. His pain is well-controlled. He will be discharged today (2) CAD (coronary atherosclerotic disease) Priority: Secondary Status: Chronic Qualifiers: Coronary Disease-Associated Artery/Lesion type: [place] artery [place] vs. transplanted heart: [place] heart Associated angina: without angina Qualified Code(s): I25.10 - Atherosclerotic heart disease of [place] coronary artery without angina pectoris (3) COPD (chronic obstructive pulmonary disease) Priority: Secondary Status: Chronic Qualifiers: COPD type: emphysema Emphysema type: panlobular Qualified Code(s): J43.1 - Panlobular emphysema (4) Hypertension Priority: Secondary Status: Chronic Qualifiers: Hypertension type: essential hypertension Qualified Code(s): I10 - Essential (primary) hypertension - Hospital Course Hospital course: Mr. Velázquez is a 72 year old male with a 5.0 cm infrarenal abdominal aortic aneurysm. He was found to have adequate anatomy for endograft repair. He was admitted on 10/08/2017 and taken to the operating room where he underwent endograft repair his aneurysm. On postoperative day one he was alert and comfortable without complaints. He was discharged in stable condition and without complications. - Time Spent with Patient Total time spent providing and/or coordinating discharge services: - Discharge Medications Prescriptions: OxyCODONE/APAP 5/325 [Percocet 5/325 MG] 1 each PO Q6HR PRN 5 Days #20 tablet PRN Reason: POSTOPERATIVE PAIN Home Medications: Albuterol Sulfate [Proair Respiclick] 2 puff IH Q4H PRN 05/07/15 [History] Aspirin Enteric Coated [Aspirin EC] 81 mg PO QAM 05/07/15 [History] Atorvastatin Calcium [Lipitor] 40 mg PO QPM 05/07/15 [History] Carvedilol 12.5 mg PO BID 05/07/15 [History] Cholecalciferol (Vitamin D3) [Vitamin D] 1,000 unit PO QAM 05/07/15 [History] Clopidogrel [Plavix] 75 mg PO QAM 11/30/15 [History] HYDROcodone/Acet 5/325 mg [[place] 5-325 mg] 0.5 tab PO BID PRN 05/07/15 [History] Potassium Chloride [Klor-Con Sprinkle] 10 meq PO QPM 05/07/15 [History] Cetirizine HCl [All Day Allergy] 10 mg PO DAILY 10/08/17 [History] Docusate Sodium [Dok] 200 mg PO DAILY 10/08/17 [History] Guaifenesin [Mucinex] 600 mg PO BID PRN 10/08/17 [History] Lisinopril [Zestril] 40 mg PO DAILY 10/08/17 [History] Multivit-Min/FA/Lycopen/Lutein [A Thru Z [employer] Multivit Tab] 1 tab PO DAILY 08/23 [History] amLODIPine [Norvasc] 5 mg PO DAILY 10/08/17 [History] OxyCODONE/APAP 5/325 [Percocet 5/325 MG] 1 each PO Q6HR PRN 5 Days #20 tablet [Rx] Allergies/Adverse Reactions: 3 Allergy/AdvReac Type Severity Reaction Status Date / Time No Known Allergies Allergy Verified 10/08/17 06:18 Date of admission: 10/08/17 12:11 Primary care physician: Marina Mora MD Procedure(s) Performed: Endograft repair of abdominal aortic aneurysm. Discharging clinician: Chance Lowery Anticipated date of discharge: 10/09/17 Exam Vital Signs, Last 4 Hours Temp Pulse Resp BP Pulse Ox 10/09/17 07:36 98.4 F 75 19 129/84 92 General: Present: Conversant, No Apparent Distress HEENT: Present: Pupils equal Neck: Absent: JVD Cardiac: Present: Reg Rate and Rhythm Lungs: Present: Normal Breath Sounds Neuro: Present: Alert and responsive, No focal deficits noted Abdomen: Present: Soft Vascular: Present: Normal capillary refill, Pulse, normal, Surgical incisions ( Incisions clean and dry without evidence of hematoma). Absent: Cyanosis, Edema Skin: Present: No rashes noted on visualized skin - Patient Status Disposition: Home, Self-Care Condition: Good Functional capacity at discharge: independent ambulation Overall status at discharge: patient is back to baseline - Discharge Instructions Instructions: Oxycodone/Acetaminophen (By mouth), Abdominal Aortic Aneurysm (DC ) Follow Up With: Chance Lowery MD [Partnered Physician] - 11/18/17 1:50 pm Marina Mora MD [Primary Care Provider] - 10/15/17 1:15 pm (please send Discharge summary to [phone]) Additional Instructions: May remove bandage and shower on 10/10/17. Wash wounds gently and pat to dry. Apply dry gauze to wounds daily for 7 days. No tub baths or swimming until 10/30/17. Call Dr. Lowery at [phone] with questions or concerns. - Diet and Activity Activity: increase activity as tolerated Diet: advance to your usual diet - VTE Documentation of Mechanical Device: Intermittent pneumatic compression device
[2017-10-09] MEDS: *HR* HYDROcodone/Acet 5/325 mg TABLET PO PRN (08:12)
[2017-10-09] MEDS ORDERED: Furosemide 40 MG TABLET PO SCH (09:00)
[2017-10-09] MEDS ORDERED: Cholecalciferol (D-3) 1,000 UNIT TABLET PO SCH (09:00)
[2017-10-09] MEDS ORDERED: Aspirin Enteric Coated 81 MG Tablet PO SCH (09:00)
== END 2017-10-09 11:24 | disposition home or self-care (01) | DRG 269 ==
LOC: SAMDAY 05:52 → 2NNU 12:00
PROVIDERS: ADMIT Surgery; ATTEND Surgery